=== PATIENT | male | born 1990 | race African-American/Black ===

== ENCOUNTER 2017-11-09 20:23 | Emergency (ER) | payer OTHER ==
[~2017-11-09] VITALS: Ht 172.7 cm; Wt 104.3 kg
[2017-11-09 22:55] VITALS: BP 15/78; TEMP 98.7
== END 2017-11-09 22:56 | disposition home or self-care (01) ==
LOC: ED 20:23
DX: J40 Bronchitis, not specified as acute or chronic (principal)
CPT/HCPCS: 87081; 87804; 87880; 96372; 99283; J0696